=== PATIENT | female | born 1995 | race Caucasian/White ===

== ENCOUNTER 2020-10-31 22:08 | Emergency (ER) | payer OTHER ==
[2020-10-31] MEDS ORDERED: XYLOCAINE 1% HCL 20 ML MDV IJ ONE (22:09)
[2020-10-31 22:37] VITALS: O2SAT 99
--- NOTE | 2020-10-31 22:39 | ERPHSYRPT ---
- History of Present Illness Time Seen by Provider: 10/31/20 22:30 Source: patient Exam Limitations: no limitations Physician History: Is a 4 who presents with a chief complaint of vaginal bleeding and concern for . Of note, the patient reportedly had some vaginal spotting during intercourse with her fianc last night. She reportedly had a tampon in place and removed it this afternoon and has not noted any vaginal spotting or bleeding since last night. She reportedly is due to start her menstrual cycle. She also endorsed having vaginal discharge that she has had for "a while" specifically for a number of years. Of note, the patient's fianc is also a patient in the emergency department and has had some penile discharge for the last month in addition to dysuria. He is actually concerned for an STD. The patient also admits just like her fianc that they introduced to new sex partners into the sex life over the last month. Her, chills, rash, nausea or vomiting. Allergies/Adverse Reactions: sulfamethoxazole [From Bactrim] Allergy (Intermediate, Verified 10/31/20 22:40) Rash trimethoprim [From Bactrim] Allergy (Intermediate, Verified 10/31/20 22:40) Rash Home Medications: Amoxicillin 500 mg PO TID 10/31/20 [History] - Review of Systems Constitutional: No Fever, No Chills Abdominal/Gastrointestinal: No Nausea, No Vomiting, No Diarrhea Genitourinary Symptoms: Vaginal Bleeding, Vaginal Discharge, No Dysuria, No Frequency, No Hesitancy, No Urgency, No Vaginal Itching All Other Systems: Reviewed and Negative - Nursing Vital Signs Nursing Vital Signs: Initial Vital Signs Temperature 98.3 F 10/31/20 22:36 Pulse Rate 85 10/31/20 22:36 Respiratory Rate 18 10/31/20 22:36 Blood Pressure 146/84 10/31/20 22:36 O2 Sat by Pulse Oximetry 99 10/31/20 22:36 Pain Scale Pain Intensity 0 - Physical Exam General Appearance: no apparent distress Eye Exam: PERRL/EOMI, eyes nml inspection, No scleral icterus Neck Exam: normal inspection, non-tender, supple Respiratory Exam: normal breath sounds, lungs clear, No respiratory distress Cardiovascular Exam: regular rate/rhythm, normal heart sounds, capillary refill <2 sec, No murmur, No friction rub, No gallop Gastrointestinal/Abdomen Exam: soft, No tenderness, No distention, No mass Pelvic Exam: vaginal discharge, other (Normal external exam with no lesions. The patient had a scant amount of white-colored discharge in the vaginal canal. The cervix appeared to be normal with no lesions.), No adnexal tenderness, No adnexal mass, No vaginal bleeding, No uterine tenderness Back Exam: normal inspection Extremity Exam: normal inspection Neurologic Exam: alert, oriented x 3, cooperative Skin Exam: normal color, warm, dry, No rash SpO2: 99 - Course Nursing assessment & vital signs reviewed: Yes Ordered Tests: Active Orders 24 hr Category Date Time Status HCG,QUALITATIVE URINE Stat Lab 10/31/20 22:41 Completed UA W/RFX UR CULTURE Stat Lab 10/31/20 22:41 Completed Wet Prep Stat Lab 10/31/20 22:41 Completed Medication Summary Discontinued Medications Generic Name Dose Route Start Last Admin Trade Name Babarq PRN Reason Stop Dose Admin Azithromycin 1,000 mg 10/31/20 22:57 10/31/20 23:48 Zithromax 250 Mg Tablet PO 10/31/20 22:58 1,000 mg STAT ONE Administration Azithromycin Confirm 10/31/20 23:46 Zithromax 250 Mg Tablet Administered 10/31/20 23:47 Dose 1,000 mg .ROUTE .STK-MED ONE Ceftriaxone Sodium 500 mg 10/31/20 22:57 10/31/20 23:43 Rocephin 250 Mg Inj IM 10/31/20 22:58 Not Given STAT ONE Ceftriaxone Sodium 500 mg 10/31/20 23:44 10/31/20 23:49 Rocephin 500 Mg Inj IM 10/31/20 23:45 500 mg STAT ONE Administration Ceftriaxone Sodium Confirm 10/31/20 23:46 Rocephin 500 Mg Inj Administered 10/31/20 23:47 Dose 500 mg .ROUTE .STK-MED ONE Lab/Rad Data: Laboratory Results 10/31/20 10/31/20 10/31/20 Range/Units 22:46 22:41 22:41 Urine Color STRAW (YELLOW) Urine Appearance CLEAR (CLEAR) Urine pH 7.0 (5-6) Ur Specific [place] 1.014 (1.005-1.025) Urine Protein NEGATIVE (Negative) Urine Ketones NEGATIVE (NEGATIVE) Urine Blood NEGATIVE (0-5) Gianni/ul Urine Nitrite NEGATIVE (NEGATIVE) Urine Bilirubin NEGATIVE (NEGATIVE) Urine Urobilinogen NEGATIVE (0-1) mg/dL Ur Leukocyte Esterase NEGATIVE (NEGATIVE) Urine WBC (Auto) NONE (0-5) /HPF Urine RBC (Auto) NONE (0-2) /HPF U Epithel Cells (Auto) RARE (FEW) /HPF Urine Bacteria (Auto) NONE SEEN (NEGATIVE) /HPF Urine Culture Reflexed NO (NO) Urine Glucose NEGATIVE (NEGATIVE) mg/dL Urine HCG, Qual NEGATIVE (Negative) WBC (Wet Prep) Rare RBC (Wet Prep) Few Epi Cells (Wet Prep) Moderate Bacteria (Wet Prep) Few Clue Cells (Wet Prep) None Seen Trichomonas (Wet Prep) None Seen Budding Yeast (Wet Prp) None Seen Chlamydia DNA Probe DETECTED (NEGATIVE) N.gonorrhoeae DNA Probe NOT DETECTED (NEGATIVE) - Progress Progress: unchanged Progress Note: 11/01/20 00:09 The patient is a 25-year-old female who presents with a chief complaint of vaginal spotting that occurred last night. She was concerned that she may be but ultimately tested negative on her UPT. She has some scant discharge and given her clinical history she opted for empiric treatment for gonorrhea chlamydia with ceftriaxone and azithromycin. Her wet prep was obtained to eval for trichomonas and was negative. She had no active bleeding on her exam and clinically she does not appear to be anemic and she is hemodynamically stable and therefore additional laboratory testing such as a CBC was deferred. The patient had no significant abdominal tenderness nor does she have any cervical motion tenderness or adnexal tenderness or fullness and my concern for TOA, ovarian cyst or torsion is low and therefore ultrasound of her pelvis was deferred. Positive for gonorrhea and Chlamydia testing was positive and to otherwise follow-up with the [facility] for more comprehensive STD and blood work pathogen testing. 11/01/20 01:09 The patient has been called to notify that she tested positive for chlamydia. Counseled pt/family regarding: lab results, diagnosis, need for follow-up - Departure Departure Disposition: Home Clinical Impression: Vaginal bleeding, Screen for STD (sexually transmitted disease), Chlamydia infection Condition: Stable Critical Care Time: No Referrals: DOCTOR,NO FAMILY [Primary Care Provider] - Instructions: Screening for Sexually Transmitted Infections, Bleeding Between Periods Additional Instructions: Please follow-up with the [facility] to undergo more comprehensive testing for STD and blood-borne diseases. Specifically, HIV, syphilis and hepatitis. Please avoid sexual intercourse for the next 72 hours and please use protection with any future partners or during intercourse. If you test positive for an STD please inform your partners so here she can undergo testing and treatment as well.
[2020-10-31 22:51] LABS: Appearance CLEAR (CLEAR); Bilirubin NEGATIVE (NEGATIVE); Blood NEGATIVE Ery/ul (0-5); Epithelial Cells RARE /HPF (FEW); Glucose NEGATIVE (NEGATIVE); Ketones NEGATIVE (NEGATIVE); Leukocyte Esterase NEGATIVE (NEGATIVE); Nitrite NEGATIVE (NEGATIVE); Protein,Urine Dip NEGATIVE (Negative); Specific Gravity 1.014 (1.005-1.025); Urobilinogen NEGATIVE mg/dL (0-1)
[2020-10-31 22:53] LABS: Bacteria NONE SEEN /HPF (NEGATIVE)
[2020-10-31] MEDS ORDERED: Zithromax 250 MG TABLET PO ONE (22:57)
[2020-10-31] MEDS ORDERED: ROCEPHIN 250 MG INJ IM ONE (22:57)
[2020-10-31 23:22] LABS: Clue Cells None Seen
[2020-10-31 23:23] LABS: Bacteria Few; Red Blood Cells Few; Trichomonas None Seen; White Blood Cells Rare; Yeast None Seen
[2020-10-31] MEDS ORDERED: Rocephin 500 MG INJ IM ONE (23:44)
[2020-10-31] MEDS ORDERED: Zithromax 250 MG TABLET ONE (23:46)
[2020-10-31] MEDS ORDERED: Rocephin 500 MG INJ ONE (23:46)
[2020-11-01 00:13] LABS: CHLAMYDIA DNA DETECTED (NEGATIVE); GC DNA Probe NOT DETECTED (NEGATIVE)
[2020-11-01 00:32] VITALS: BP 97/61; PULSE 67
== END 2020-11-01 00:10 | disposition home or self-care (01) ==
LOC: ED 22:08
DX: N93.9 Abnormal uterine and vaginal bleeding, unspecified (principal); Z11.3 Encounter for screening for infections with a predominantly sexual mode of transmission; A74.9 Chlamydial infection, unspecified
CPT/HCPCS: 81001; 84703; 87210; 87491; 87591; 96372; 99284; J0696; A9270-GY

== ENCOUNTER 2021-01-21 18:33 | Emergency (ER) | payer OTHER ==
[2021-01-21] MEDS ORDERED: Zofran 4 MG/2 ML VIAL IV ONE (19:02)
[2021-01-21] MEDS ORDERED: TORAdol 30 mg Injection IV ONE (19:02)
[2021-01-21] MEDS ORDERED: Hydromorphone 1 mg/ml Injection IV ONE (19:02)
[2021-01-21] MEDS ORDERED: Sodium Chloride 0.9% 1000 ML 1,000 ML IV STA (19:02)
[2021-01-21] MEDS ORDERED: Zofran 4 MG/2 ML VIAL ONE (19:39)
[2021-01-21] MEDS ORDERED: TORAdol 30 mg Injection ONE (19:39)
[2021-01-21] MEDS ORDERED: Sodium Chloride 0.9% 1000 ML 1,000 ML ONE (19:39)
[2021-01-21] MEDS ORDERED: Hydromorphone 1 mg/ml Injection ONE (19:39)
[2021-01-21 19:44] LABS: Absolute Neutrophil Ct (ANC) 4.15 (1.4-6.9); BASOPHIL % 0.3 % (0.0-0.4); Basophil (Absolute #) 0.02 (0-0.4); Eosinophil % 1.1 % (0.00-5.0); Eosinophil (Absolute #) 0.07 (0-0.5); Hemoglobin 13.2 gm/dl (12.0-16.0); Lymphocyte (Absolute #) 1.63 (1.0-4.6); Lymphocytes % 25.3 % (24.0-44.0); Mean Cell Volume 90.5 fl (78-100); Mean Corpuscular Hemoglobin 30.6 pg (26-32); Mean Corpuscular Hgb Concent. 33.8 g/dl (32-36); Mean Platelet Volume 9.7 fl (7.5-11.0); Monocyte (Absolute #) 0.58 (0.0-1.3); Neutrophil % 64.3 % (36.0-66.0); Platelet Count 356 K/mm3 (150-450); Red Blood Count 4.31 M/mm3 (4.1-5.4); Red Cell Distribution Width 12.5 % (11.5-14.0); White Blood Count 6.5 K/mm3 (4.0-10.5)
[2021-01-21 19:57] LABS: Appearance CLEAR (CLEAR); Bilirubin NEGATIVE (NEGATIVE); Blood SMALL Ery/ul (0-5); Epithelial Cells RARE /HPF (FEW); Glucose NEGATIVE (NEGATIVE); Ketones NEGATIVE (NEGATIVE); Leukocyte Esterase NEGATIVE (NEGATIVE); Nitrite NEGATIVE (NEGATIVE); Protein,Urine Dip NEGATIVE (Negative); Specific Gravity 1.003 (1.005-1.025); Urobilinogen NEGATIVE mg/dL (0-1)
[2021-01-21 19:58] LABS: RBC NONE SEEN /HPF (0-2)
[2021-01-21 20:00] LABS: ALBUMIN 4.5 g/dL (3.5-5.0); ALKALINE PHOSPHATASE 51 U/L (38-126); ANION GAP 13.1 MEQ/L (5-15); BLOOD UREA NITROGEN 9 mg/dL (7-17); CHLORIDE 105 mmol/L (98-107); Calcium 9.3 mg/dL (8.4-10.2); Carbon Dioxide 24 mmol/L (22-30); Creatinine 1 0.74 mg/dL (0.52-1.04); EST GLOMERULAR FILTRATION RATE > 60.0 ML/MIN; Glucose 78 mg/dL (74-106); Potassium 3.9 mmol/L (3.5-5.1); SGOT/AST 25 U/L (14-36); SGPT/ALT 29 U/L (0-35); SODIUM 138 mmol/L (137-145); Total Protein 7.4 g/dL (6.3-8.2)
--- NOTE | 2021-01-21 21:17 | ERPHSYRPT ---
- History of Present Illness Time Seen by Provider: 01/21/21 18:50 Source: patient Exam Limitations: no limitations Patient Subjective Stated Complaint: PT states "I was at work and I just started blowing through tampons and my cramps are so bad." Triage Nursing Assessment: Pt presented alert and oriented X 3, skin wpd Pt ambulates with a hunched over gait. Pt holding her abdomen. PT crying. Physician History: Placement is a 26-year-old female 0 para 0 who presents with severe menstrual cramps she started her menses 2 days ago which was at the time of the right and today became very heavy with severe cramps she has had bleeding and cramping. She has an irregular menses. Timing/Duration: yesterday Activites at Onset: none Quality: cramping Onset Location: suprapubic, vaginal, pelvic pain Pain Radiation: none Severity of Pain-Max: severe Severity of Pain-Current: severe Sexual intercourse history: non-contributory Modifying Factors: Improves With: nothing Allergies/Adverse Reactions: sulfamethoxazole [From Bactrim] Allergy (Intermediate, Verified 10/31/20 22:40) Rash trimethoprim [From Bactrim] Allergy (Intermediate, Verified 10/31/20 22:40) Rash Hx Tetanus, Diphtheria Vaccination/Date Given: Yes Hx Influenza Vaccination/Date Given: No Hx Pneumococcal Vaccination/Date Given: No Travel Risk - International Travel Have you traveled outside of the country in past 3 weeks: No - Coronavirus Screening Are you exhibiting any of the following symptoms?: No Close contact with a COVID-19 positive Pt in past 14-21 Days: No - Vaccine Status Have you recieved a Covid-19 vaccination: No - Review of Systems Constitutional: No Fever, No Chills Eyes: No Symptoms Ears, Nose, & Throat: No Symptoms Respiratory: No Cough, No Dyspnea Cardiac: No Chest Pain, No Edema, No Syncope Abdominal/Gastrointestinal: No Abdominal Pain, No Nausea, No Vomiting, No Diarrhea Genitourinary Symptoms: Menorrhagia, Vaginal Bleeding, No Dysuria Musculoskeletal: No Back Pain, No Neck Pain Skin: No Rash Neurological: No Dizziness, No Focal Weakness, No Sensory Changes Psychological: No Symptoms Endocrine: No Symptoms All Other Systems: Reviewed and Negative - Past Medical History Pertinent Past Medical History: No Neurological History: No Pertinent History ENT History: No Pertinent History Cardiac History: No Pertinent History Respiratory History: No Pertinent History Endocrine Medical History: No Pertinent History Musculoskeletal History: No Pertinent History GI Medical History: No Pertinent History History: No Pertinent History Psycho-Social History: Anxiety Female Reproductive Disorders: No Pertinent History - Past Surgical History Past Surgical History: No Neuro Surgical History: No Pertinent History Cardiac: No Pertinent History Respiratory: No Pertinent History Gastrointestinal: No Pertinent History Genitourinary: No Pertinent History Musculoskeletal: No Pertinent History Female Surgical History: No Pertinent History - Social History Smoking Status: Current every day smoker How long have you smoked: 8 years Exposure to second hand smoke: Yes Drug Use: marijuana Patient Lives Alone: No - Female History Hx Last Menstrual Period: 01/20/2021 Hx Now: No - Nursing Vital Signs Nursing Vital Signs: Initial Vital Signs Temperature 98.6 F 01/21/21 18:43 Pulse Rate 92 H 01/21/21 18:43 Respiratory Rate 24 01/21/21 18:43 Blood Pressure 107/72 01/21/21 18:43 O2 Sat by Pulse Oximetry 94 L 01/21/21 18:43 Pain Scale Pain Intensity 0 - Physical Exam General Appearance: no apparent distress, alert Eye Exam: PERRL/EOMI, eyes nml inspection Ears, Nose, Throat Exam: normal ENT inspection, TMs normal, pharynx normal, moist mucous membranes Neck Exam: normal inspection, non-tender, supple, full range of motion Respiratory Exam: normal breath sounds, lungs clear, No respiratory distress Cardiovascular Exam: regular rate/rhythm, normal heart sounds, normal peripheral pulses Gastrointestinal/Abdomen Exam: soft, No tenderness, No mass Pelvic Exam: normal external exam, vaginal bleeding Back Exam: normal inspection, normal range of motion, No CVA tenderness, No vertebral tenderness Extremity Exam: normal inspection, normal range of motion, pelvis stable Neurologic Exam: alert, oriented x 3, cooperative, 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, normal mood/affect, sensation nml, No motor deficits Skin Exam: normal color, warm, dry Lymphatic Exam: No adenopathy SpO2: 99 - Course Nursing assessment & vital signs reviewed: Yes - CT Exams Abdomen/Pelvis CT Interpretation: Negative, Tele-radiologist Report Ordered Tests: Active Orders 24 hr Category Date Time Status IV Insertion STAT Care 01/21/21 19:02 Active ABDOMEN AND PELVIS W CONTRAST [CT] Stat Exams 01/21/21 20:52 Taken CBC W DIFF Stat Lab 01/21/21 19:30 Completed CMP Stat Lab 01/21/21 19:30 Completed CULTURE,URINE Stat Lab 01/21/21 19:21 Received HCG QUALITATIVE,SERUM Stat Lab 01/21/21 19:30 Completed UA W/RFX UR CULTURE Stat Lab 01/21/21 19:21 Completed Medication Summary Discontinued Medications Generic Name Dose Route Start Last Admin Trade Name Claire PRN Reason Stop Dose Admin Hydromorphone HCl 1 mg 01/21/21 19:02 01/21/21 19:45 Hydromorphone 1 Mg/Ml Injection IV 01/21/21 19:03 1 mg STAT ONE Administration Hydromorphone HCl Confirm 01/21/21 19:39 Hydromorphone 1 Mg/Ml Injection Administered 01/21/21 19:40 Dose 1 mg .ROUTE .STK-MED ONE Sodium Chloride 1,000 mls @ 999 mls/hr 01/21/21 19:02 01/21/21 20:47 Sodium Chloride 0.9% 1000 Ml IV 01/21/21 20:02 Infused .Q1H1M STA Infusion Sodium Chloride Confirm 01/21/21 19:39 Sodium Chloride 0.9% 1000 Ml Administered 01/21/21 19:40 Dose 1,000 mls @ ud .ROUTE .STK-MED ONE Ketorolac Tromethamine 30 mg 01/21/21 19:02 01/21/21 19:45 Toradol 30 Mg Injection IV 01/21/21 19:03 30 mg STAT ONE Administration Ketorolac Tromethamine Confirm 01/21/21 19:39 Toradol 30 Mg Injection Administered 01/21/21 19:40 Dose 30 mg .ROUTE .STK-MED ONE Ondansetron HCl 4 mg 01/21/21 19:02 01/21/21 19:45 Zofran 4 Mg/2 Ml Vial IV 01/21/21 19:03 4 mg STAT ONE Administration Ondansetron HCl Confirm 01/21/21 19:39 Zofran 4 Mg/2 Ml Vial Administered 01/21/21 19:40 Dose 4 mg .ROUTE .STK-MED ONE Lab/Rad Data: Laboratory Result Diagrams 01/21/21 19:30 09/21/21 19:30 Laboratory Results 01/21/21 01/21/21 01/21/21 Range/Units 19:30 19:30 19:30 WBC 6.5 (4.0-10.5) K/mm3 RBC 4.31 (4.1-5.4) M/mm3 Hgb 13.2 (12.0-16.0) gm/dl Hct 39.0 (35-47) % MCV 90.5 (78-100) fl MCH 30.6 (26-32) pg MCHC 33.8 (32-36) g/dl RDW 12.5 (11.5-14.0) % Plt Count 356 (150-450) K/mm3 MPV 9.7 (7.5-11.0) fl Gran % 64.3 (36.0-66.0) % Eos # (Auto) 0.07 (0-0.5) Absolute Lymphs (auto) 1.63 (1.0-4.6) Absolute Monos (auto) 0.58 (0.0-1.3) Lymphocytes % 25.3 (24.0-44.0) % Monocytes % 9.0 (0.0-12.0) % Eosinophils % 1.1 (0.00-5.0) % Basophils % 0.3 (0.0-0.4) % Absolute Granulocytes 4.15 (1.4-6.9) Basophils # 0.02 (0-0.4) Sodium 138 (137-145) mmol/L Potassium 3.9 (3.5-5.1) mmol/L Chloride 105 (98-107) mmol/L Carbon Dioxide 24 (22-30) mmol/L Anion Gap 13.1 (5-15) MEQ/L BUN 9 (7-17) mg/dL Creatinine 0.74 (0.52-1.04) mg/dL Estimated GFR > 60.0 ML/MIN Glucose 78 (74-106) mg/dL Calcium 9.3 (8.4-10.2) mg/dL Total Bilirubin 0.20 (0.2-1.3) mg/dL AST 25 (14-36) U/L ALT 29 (0-35) U/L Alkaline Phosphatase 51 (38-126) U/L Serum Total Protein 7.4 (6.3-8.2) g/dL Albumin 4.5 (3.5-5.0) g/dL Serum , Qual NEGATIVE (Negative) Urine Color (YELLOW) Urine Appearance (CLEAR) Urine pH (5-6) Ur Specific [place] (1.005-1.025) Urine Protein (Negative) Urine Ketones (NEGATIVE) Urine Blood (0-5) Gianni/ul Urine Nitrite (NEGATIVE) Urine Bilirubin (NEGATIVE) Urine Urobilinogen (0-1) mg/dL Ur Leukocyte Esterase (NEGATIVE) Urine WBC (Auto) (0-5) /HPF Urine RBC (Auto) (0-2) /HPF U Epithel Cells (Auto) (FEW) /HPF Urine Bacteria (Auto) (NEGATIVE) /HPF Urine Culture Reflexed (NO) Urine Glucose (NEGATIVE) mg/dL 01/21/21 Range/Units 19:21 WBC (4.0-10.5) K/mm3 RBC (4.1-5.4) M/mm3 Hgb (12.0-16.0) gm/dl Hct (35-47) % MCV (78-100) fl MCH (26-32) pg MCHC (32-36) g/dl RDW (11.5-14.0) % Plt Count (150-450) K/mm3 MPV (7.5-11.0) fl Gran % (36.0-66.0) % Eos # (Auto) (0-0.5) Absolute Lymphs (auto) (1.0-4.6) Absolute Monos (auto) (0.0-1.3) Lymphocytes % (24.0-44.0) % Monocytes % (0.0-12.0) % Eosinophils % (0.00-5.0) % Basophils % (0.0-0.4) % Absolute Granulocytes (1.4-6.9) Basophils # (0-0.4) Sodium (137-145) mmol/L Potassium (3.5-5.1) mmol/L Chloride (98-107) mmol/L Carbon Dioxide (22-30) mmol/L Anion Gap (5-15) MEQ/L BUN (7-17) mg/dL Creatinine (0.52-1.04) mg/dL Estimated GFR ML/MIN Glucose (74-106) mg/dL Calcium (8.4-10.2) mg/dL Total Bilirubin (0.2-1.3) mg/dL AST (14-36) U/L ALT (0-35) U/L Alkaline Phosphatase (38-126) U/L Serum Total Protein (6.3-8.2) g/dL Albumin (3.5-5.0) g/dL Serum , Qual (Negative) Urine Color COLORLESS (YELLOW) Urine Appearance CLEAR (CLEAR) Urine pH 6.0 (5-6) Ur Specific [place] 1.003 (1.005-1.025) Urine Protein NEGATIVE (Negative) Urine Ketones NEGATIVE (NEGATIVE) Urine Blood SMALL (0-5) Gianni/ul Urine Nitrite NEGATIVE (NEGATIVE) Urine Bilirubin NEGATIVE (NEGATIVE) Urine Urobilinogen NEGATIVE (0-1) mg/dL Ur Leukocyte Esterase NEGATIVE (NEGATIVE) Urine WBC (Auto) NONE (0-5) /HPF Urine RBC (Auto) NONE SEEN (0-2) /HPF U Epithel Cells (Auto) RARE (FEW) /HPF Urine Bacteria (Auto) NONE (NEGATIVE) /HPF Urine Culture Reflexed NO (NO) Urine Glucose NEGATIVE (NEGATIVE) mg/dL - Progress Progress: improved - Departure Departure Disposition: Home Clinical Impression: Dysmenorrhea Condition: Stable Critical Care Time: No Referrals: DOCTOR,NO FAMILY [Primary Care Provider] - Instructions: Menstrual Cramps (DC)
[2021-01-21] MEDS ORDERED: NORCO 5/325 MG PO ONE (21:45)
[2021-01-21] MEDS ORDERED: NORCO 5/325 MG ONE (22:05)
[2021-01-21 22:24] VITALS: BP 108/62; PULSE 85; O2SAT 100
--- NOTE | 2021-01-22 17:42 | XRAY ---
Exam: CT of the abdomen and pelvis with IV contrast 01/21/2021. CTDI: 4.00 mGy Comparison: None. Indication: 26-year-old female with lower pelvic pain and heavy vaginal bleeding and cramping; no history of prior abdominal/pelvic surgery. Technique: Post-IV contrast axial images were obtained through the abdomen and pelvis during automated injection of 80 cc of Isovue-370 contrast material. Reconstructed coronal and sagittal images were created and reviewed. Findings: The visualized lung bases appear clear. The liver and spleen appear of unremarkable size and uniform attenuation. The gallbladder is mildly distended and reveals no calcifications within it. No biliary duct distention is seen. Both the pancreas and adrenal glands appear unremarkable. The kidneys appear of unremarkable size and display good function on the delay images. I see no evidence of renal mass, obstructive uropathy, or abnormal renal parenchymal enhancement. The opacified ureters on the delay images appear unremarkable. There is no evidence of abdominal aortic aneurysm or abnormal retroperitoneal lymphadenopathy. There is no evidence of free intraperitoneal air or anterior abdominal wall hernia. A mild amount of fluid is seen within the gastric lumen resulting in an air-fluid level within the gastric fundus. This is nonspecific. I am I see no abnormal bowel distention or bowel wall thickening. No definite findings of appendicitis are seen within the right lower quadrant. Scattered colonic stool is noted. The uterus is anteflexed. I see no definite free intraperitoneal fluid. The urinary bladder appears grossly unremarkable. The pelvic adnexa reveal no gross abnormality. The pelvic sidewalls appear normal. Small lymph nodes are seen within each groin, nonspecific. The skeleton reveals no acute fracture or acute/aggressive osseous abnormality. Impression: 1. No acute findings are seen within the abdomen or pelvis.
== END 2021-01-21 22:24 | disposition home or self-care (01) ==
LOC: ED 18:33
DX: N94.6 Dysmenorrhea, unspecified (principal); R10.2 Pelvic and perineal pain
CPT/HCPCS: 36000; 36415; 74177; 80053; 81001; 81025; 85025; 87086; 96360; 96374; 96375; 99284; J1170; J1885; J2405; A9270-GY